=== PATIENT | male | born 1955 | race Caucasian/White ===

== ENCOUNTER 2025-03-19 09:25 | Emergency (ER) | payer OTHER, SELFPAY ==
[2025-03-19 09:29] VITALS: BP 105/55
[2025-03-19 09:41] VITALS: BMI 37.3
--- NOTE | 2025-03-19 09:53 | ED.GENMED ---
History of Present Illness
General
Chief Complaint: Nose Bleed
Source: patient
Time Seen by Provider: 03/19/25 09:45
History of Present Illness
History of Present Illness:
70-year-old male with past medical history of COPD, atrial fibrillation, hypertension, chronic epistaxis presenting to the ER from right nare epistaxis that began around 6:30 AM this morning. Patient was scheduled to undergo a CT scan as part of
his outpatient workup prior to getting a Watchman procedure completed and due to the bleeding came to the ER instead. He does note that the bleeding has subsided a little bit. He notes that this is a chronic condition for him and has needed
cauterization done by ENT, sees Dr. Chaves from [facility] normally. Patient is on Xarelto, did not take his usual dose this morning. He has no other symptoms presently.
Past History
Past History
ED Past Medical History: Arrthythmia, COPD, HTN and Other (Chronic Epistaxis)
ED Past Surgical History: None
Social History
Tobacco: Former smoker
Alcohol: None
Drug: None
Personal:
Living: with family
Review of Systems
Review of Systems
All Other Systems: ROS reviewed and negative except as documented in HPI and ROS
Phy Exam
Physical Exam
Physical Exam:
GENERAL: Alert , in no apparent distress
EYE: conjunctiva clear
Head: Normocephalic atraumatic
NECK: Supple
ENT: mmm. fresh blood anterior right nare but without active bleeding, no septal hematoma
LUNGS: no acute respiratory distress
NEUROLOGICAL: Alert and oriented
SKIN: Warm and dry, skin intact.
MUSCULOSKELETAL: well perfused.
PSYCH: Normal and appropriate interaction.
Scores
Heart Failure Risk
Heart Failure Risk Score: Not Applicable
Heart Score for Chest Pain Patients
STEMI patient?: Not applicable
Withdrawal Assessment of Alcohol
Withdrawal Assessment Completed?: Not applicable
Course
Vital Signs
Initial and Last Documented VS:
Initial Vital Signs
Temp Pulse Resp BP Pulse Ox
97.9 F 54 16 105/55 98
03/19/25 09:29 03/19/25 09:29 03/19/25 09:29 03/19/25 09:29 03/19/25 09:29
Last Documented Vital Signs
Temp Pulse Resp BP Pulse Ox
97.9 F 61 15 147/90 98
03/19/25 09:29 03/19/25 11:04 03/19/25 11:04 03/19/25 11:04 03/19/25 09:57
MDM/Problems Addressed
Differential Diagnosis Includes:
Chronic epistaxis
Infectious
Sinusitis
Anemia
MDM/Problems Addressed:
70-year-old male presenting to the ER for evaluation of epistaxis that has been constant since 6:30 AM. No fevers or infectious symptoms. Hemodynamically stable and in no acute distress. Given bleeding has since subsided a little bit we will
continue to observe patient with nasal clamp. He did already use Afrin at home so we will avoid giving a second dose of this for the time being. Will consider silver nitrate given the small area of bleeding noted in the anterior right nare. Low
threshold to pack given patient is anticoagulated.
*Pulse Oximetry
SaO2: 98
Oxygen Mode of Delivery: Room air
Patient hypoxic: no
*Critical Care Note
Total Time (30-74mins, 75-104mins- exclusive of procedures): Not Applicable
Patient Management
Escalation/DeEscalation of care consider admission/obs:
Patient's epistaxis remains resolved without any further direct pressure. While in the ER I had the patient contact his ENT provider and they were able to see him today for an appointment at 1230. Will discharge the patient for him to go directly
to the ENT office. He has a nasal clamp to bring with him just in case his nosebleed starts again.
ED Attending Note
-
Portions of this chart may have been created with voice recognition software.� Occasional wrong word or��sound alike� substitutions may have occurred due to the inherent limitations of voice recognition software.
Discharge Plan
Departure
Patient Disposition: Home (Routine Discharge)
Date of Disposition: 03/19/25
Time of Disposition: 11:15
Patient with high blood pressure during this ER visit?: Yes
Discharge Problem:
Epistaxis
Instructions: Nosebleeds (DC)
Prescriptions:
No Action
diltiazem HCl 240 MG capsule,extended release 24hr
240 mg PO DAILY
furosemide [Lasix] 40 MG tablet
40 mg PO DAILY
fluconazole 100 MG tablet
100 mg PO DAILY
dofetilide [Tikosyn] 250 MCG capsule
250 mcg PO BID
budesonide-formoterol [Symbicort] 1 PUFF HFA aerosol inhaler
1 puff inhalation BID
rivaroxaban [Xarelto] 20 MG tablet
20 mg PO DAILY
Referrals:
Bharti Loredo DO [Family Provider]
Interventions
Interventions:
*Risk Screen - Suicide Last Done: 03/19/25 09:29
*General Assessment Last Done: 03/19/25 09:29
*Neglect/Abuse Screening Last Done: 03/19/25 09:29
*ED- Fall Risk Assessment Last Done: 03/19/25 09:42
*ED COVID-19 Vaccine History Last Done: 03/19/25 09:42
*ED Influenza Vaccine History Last Done: 03/19/25 09:42
*Nursing Disposition Last Done: 03/19/25 11:20
ED-EENT Assessment Last Done: 03/19/25 09:48
Discharge Date and Time
Discharge Date/Time: 03/19/25 11:20
Print Language: CAMBODIAN
[2025-03-19 10:08] VITALS: BP 125/60
[2025-03-19 10:10] VITALS: BP 125/60
[2025-03-19 11:04] VITALS: BP 147/90
== END 2025-03-19 11:20 | disposition home or self-care (01) ==
LOC: EMR 09:25
PROVIDERS: EMERGENCY PHYSICIAN Emergency Medicine; FAMILY PHYSICIAN Family Medicine
DX: R04.0 Epistaxis (principal); I48.91 Unspecified atrial fibrillation; I10 Essential (primary) hypertension; J44.9 Chronic obstructive pulmonary disease, unspecified; Z79.01 Long term (current) use of anticoagulants; Z87.891 Personal history of nicotine dependence
CPT/HCPCS: 99282

== ENCOUNTER → 2025-04-01 09:02 | Outpatient (REF) | payer OTHER, SELFPAY | LOC: RAD 09:02 | PROVIDERS: ATTENDING PHYSICIAN Internal Medicine Cardiovascular Disease; FAMILY PHYSICIAN Family Medicine | DX: I48.0 Paroxysmal atrial fibrillation (principal) | CPT/HCPCS: 75572; Q9967 ==

== ENCOUNTER 2025-05-01 07:21 | Day surgery (SDC) | payer OTHER, SELFPAY ==
--- NOTE | 2025-04-28 14:53 | HPS.HSE ---
Family Physician
-
Family Physician: NO INTERVIEW UNKNOWN
Chief Complaint
-
Paroxysmal atrial fibrillation. Recurrent epistaxis.
History of Present Illness
The patient is a 70-year-old male presenting today for paroxysmal atrial fibrillation. The patient reports a history of infrequent palpitations, fatigue, lightheadedness, dizziness, and mild shortness of breath secondary to this diagnosis.
He previously underwent two cardioversions for his arrhythmia, with the last occurring approximately seven years ago. He is on current pharmacological therapy with Diltiazem, Dofetilide, and Metoprolol Succinate. He has been compliant with Xarelto
for oral anticoagulation. Unfortunately, he describes a long history of frequent epistaxis. He has required several emergency room visits for his epistaxis. He reports that his epistaxis can be very severe and his fear and concern for recurrent
epistaxis has significantly affected his lifestyle. He is always concerned that a simple sneeze or cough will cause his epistaxis to reoccur. Additionally, he has developed a worsening gait and now walks with a cane. He also has multifactorial
anemia. For these reasons, it is recommended he proceed with pulmonary vein isolation and Watchman implantation at this time. Prior to these procedures, he will undergo a transesophageal echocardiogram to definitively rule out a left atrial
appendage thrombus. He denies any current complaints today such as chest pain, shortness of breath at rest, nausea, vomiting, diarrhea, cough, sore throat, or fever.
Medical History
Past Medical History
Past Medical History: Reports Other
Additional Past Medical History:
1. Paroxysmal atrial fibrillation, status post cardioversion x2; pharmacological therapy with Dofetilide, Diltiazem, and Metoprolol Succinate, oral anticoagulation with Xarelto
2. Recurrent epistaxis.
3. Hypertension.
4. Chronic diastolic heart failure, preserved ejection fraction.
5. Sinus bradycardia.
6. Chronic venous insufficiency with varicosities.
7. Bilateral lower extremity edema.
8. Pulmonary hypertension.
9. Moderate to severe aortic stenosis.
10. COPD.
11. Pulmonary nodules.
12. Obstructive sleep apnea, recent noncompliance with CPAP due to recurrent epistaxis.
13. Chronic kidney disease stage 3.
14. Colon polyps.
15. Cholelithiasis, asymptomatic.
16. Ambulatory dysfunction with balance difficulties.
17. Osteoarthritis, status post bilateral total knee arthroplasty, 2008, and right total hip arthroplasty 2020.
18. Glaucoma per records.
19. Multifactorial anemia requiring blood transfusion 04/15/2025.
20. Gout.
21. Mild hyponatremia.
22. Mild hypocalcemia.
23. Morbid obesity, BMI 40.1.
24. History of tobacco abuse.
Past Surgical History: Reports Other
Additional Past Surgical History:
1. Cardioversion x2.
2. Bilateral total knee arthroplasty.
3. Right total hip arthroplasty.
4. Right adrenalectomy.
5. Bilateral cataract extraction.
6. Colonoscopy x2.
7. Endoscopy.
Social History
Tobacco: Former Smoker (He is a former one pack per day cigarette smoker who quit tobacco products altogether approximately four years ago. )
Alcohol: Occasional
Personal:
Living: Other (The patient lives in a one-story home with his . )
Family History
Family History: Not pertinent
Allergies / Home Medications
Allergy/Medication List:
HOME MEDICATIONS:
1. Cyanocobalamin 1000 mcg p.o. daily.
2. Diltiazem HCL 240 mg p.o. daily.
3. Dofetilide 250 mcg p.o. twice a day.
4. Furosemide 40 mg p.o. daily.
5. Losartan 25 mg p.o. daily.
6. Metoprolol Succinate 12.5 mg p.o. at bedtime.
7. Stiolto Respimat two puffs inhaled daily.
8. Xarelto 20 mg p.o. daily.
ALLERGIES: No known allergies.
Review of Systems
-
A 12 point ROS was completed and negative except as noted: Yes
Physical Exam
Vital Signs
Blood pressure 117/62, heart rate 46, respirations 18, pulse ox 99%.
Height 5 feet 5 inches, weight 109.2 kg, BMI 40.1.
Physical Exam
General: Well Developed, Well Nourished and No Apparent Distress
HEENT: NormoCephalic, Moist mucous membranes, Atraumatic and PERRLA
Respiratory: Clear
Cardiac: Bradycardia and Murmur (I/ apical hollow systolic murmur. )
GI: Soft, Non Tender, Non Distended and Other (Morbidly obese. )
Musculoskeletal: Other (+ 1 bilateral lower extremity edema with chronic venous stasis changes. No calf tenderness.)
Skin: Warm and Dry
Neuro: AO x 3 and Nonfocal/grossly intact
Laboratory Results
-
DIAGNOSTIC STUDIES as of 04/22/2025: White blood cell count 4.3, hemoglobin 9.8, platelet count 152,000. PT 34.1, INR 3.44. Sodium 131. Potassium 4.6. BUN 38. Creatinine 1.5. Glucose 88. Calcium 8.1. Magnesium 2.3. AST 18. ALT 12. Albumin 3.9. MRSA
screen negative.
EKG 04/22/2025: Baseline artifact which adversely affects interpretation. Junctional rhythm.
Echocardiogram 01/19/2025: Moderate to moderately severe left atrial and mild to moderate right atrial enlargement with borderline right ventricle enlargement. All other chamber sizes normal. Normal left and low normal right ventricular systolic
function. Grade 3 diastolic dysfunction. Moderate to severe aortic stenosis. Trace to mild tricuspid regurgitation with evidence of severe pulmonary hypertension.
Cardiac catheterization 12/03/2020: Moderate aortic stenosis with mean gradient of 27 mmHg. Normal left ventricular function with ejection fraction 64%. Normal coronary arteries.
Impression/Plan
-
IMPRESSION/PLAN:
1. Paroxysmal atrial fibrillation and recurrent epistaxis: The patient is in need of pulmonary vein isolation and a Watchman implant; however, prior to these procedures, he will undergo a transesophageal echocardiogram to officially rule out a left
atrial appendage thrombus. This has been scheduled for 05/01/[address] Tenzin Fishman. The benefits and risks of the procedure have been explained to the patient. The patient understands these risks and wishes to proceed.
[2025-05-01 08:14] VITALS: BMI 41.7
== END 2025-05-01 09:45 | disposition home or self-care (01) ==
LOC: CATH 07:21
PROVIDERS: ATTENDING PHYSICIAN Internal Medicine; FAMILY PHYSICIAN Family Medicine; OTHER PHYSICIAN Physician Assistant
DX: I48.0 Paroxysmal atrial fibrillation (principal); Z79.899 Other long term (current) drug therapy; Z79.01 Long term (current) use of anticoagulants; R04.0 Epistaxis; D64.9 Anemia, unspecified; E66.01 Morbid (severe) obesity due to excess calories; G47.33 Obstructive sleep apnea (adult) (pediatric); H40.9 Unspecified glaucoma; I08.1 Rheumatic disorders of both mitral and tricuspid valves; I13.0 Hypertensive heart and chronic kidney disease with heart failure and stage 1 through stage 4 chronic kidney disease, or unspecified chronic kidney disease; I27.20 Pulmonary hypertension, unspecified; I35.0 Nonrheumatic aortic (valve) stenosis; I50.32 Chronic diastolic (congestive) heart failure; I87.2 Venous insufficiency (chronic) (peripheral); J44.9 Chronic obstructive pulmonary disease, unspecified; M10.9 Gout, unspecified; M19.90 Unspecified osteoarthritis, unspecified site; N18.30 Chronic kidney disease, stage 3 unspecified; Z68.41 Body mass index [BMI] 40.0-44.9, adult; Z87.891 Personal history of nicotine dependence; Z86.0100 Personal history of colon polyps, unspecified; Z96.643 Presence of artificial hip joint, bilateral; Z96.653 Presence of artificial knee joint, bilateral; Z98.41 Cataract extraction status, right eye; Z98.42 Cataract extraction status, left eye; E83.51 Hypocalcemia; E87.1 Hypo-osmolality and hyponatremia
CPT/HCPCS: 93312; 93320; 93325

== ENCOUNTER 2025-05-04 05:57 | Inpatient (IN) | payer OTHER, SELFPAY ==
[2025-04-22 11:01] VITALS: BMI 40.1
[2025-04-22 11:37] LABS: INR 3.44; PT 34.1 Sec (11.4-14.6)
[2025-04-22 11:44] LABS: Hematocrit 30.2 % (39.0-52.0); Hemoglobin 9.8 g/dL (13.0-18.0); Mean Corp Hgb Conc. 32.5 g/dL (33.0-37.0); Mean Corpuscular Volume 93.5 fL (80.0-94.0); Nucleated Red Blood Cells % 0 % (-); Platelet Count 152 10^3/uL (130-400); Red Cell Dist. Width 15.2 % (11.5-14.5)
[2025-04-22 13:31] LABS: ALT (SGPT) 12 U/L (0-50); AST (SGOT) 18 U/L (17-59); Albumin 3.9 g/dl (3.5-5.0); Alkaline Phosphatase 124 U/L (38-126); Blood Urea Nitrogen 38 mg/dl (9-20); Calcium 8.1 mg/dl (8.4-10.2); Carbon Dioxide 24 mmol/L (22-30); Chloride 102 mmol/L (98-107); Estimated Creatinine Clearance 52 ml/min; Glucose 88 mg/dl (70-99); Magnesium 2.3 mg/dl (1.6-2.3); Potassium 4.6 mmol/L (3.5-5.1); Sodium 131 mmol/L (135-145); Total Protein 8.0 g/dl (6.3-8.2); eGFR 49.77
--- NOTE | 2025-05-01 13:09 | W.SUR.PREOP ---
Pre-Operative Surgical Note
-
Attempted a repeat BMP for this patient on , 04/30.
Unfortunately his specimen had hemolyzed.
Spoke to Dr. Holbrook re: this and the patient's recent mild, asymptomatic hyponatremia.
The patient may still proceed as planned on 05/04.
Spoke to patient directly over the phone about this today.
[2025-05-04] VITALS (35 sets, daily range): BP systolic 74–129; BP diastolic 47–74; BMI 39.9
--- NOTE | 2025-05-04 07:46 | ITS.CL.ABL ---
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
Ablation
Procedure Report:
ELECTROPHYSIOLOGIC STUDY AND POSSIBLE ABLATION
DATE: May 04, 2025
Primary Care Provider: Bharti Loredo MD
Primary Abalone Fisherman: Houston Quinones MD
INDICATION:
Symptomatic Atrial Fibrillation.
Paroxysmal
HISTORY: See H and P.
Symptomatic AF, poorly controlled with attempted medical therapy.
Symptomatic paroxysmal atrial fibrillation. Symptoms occur at least once a week and can last anywhere from 15 minutes to several hours, this despite ongoing treatment with dofetilide.
He has a long history of frequent epistaxis.� He has required several emergency room visits for recurrent epistaxis.� He tells me epistaxis can be very severe and his fear and concern of recurrent epistaxis has significantly affected his lifestyle
as he is always concerned that with a simple sneeze or cough epistaxis can recur.
Additionally he has developed worsening gait disturbance, now walks with a cane. He tells me he feels off balance at times. He is yet to have a severe fall but he is worried about his risk of severe falls.
He has history of COPD, SPIKE, diastolic heart failure, hypertension, gout, osteoarthritis, glaucoma, venous insufficiency, aortic stenosis.
Echocardiogram from January 05, 2025:� �Normal left ventricular size and function, �Borderline right ventricular enlargement, �Moderate to moderately severe left atrial, mild to moderate right atrial enlargement, moderate to aortic stenosis with
peak and mean gradients of 43 and 23 mmHg respectively
HAS-BLED: 3
Age
Abnormal Renal Function
H/O Bleeding
CHADSVASc: 3
HFpEF
HTN
Age
PRESENTING RHYTHM: SR
HISTORY: See H and P.
Symptomatic AF, poorly controlled with attempted medical therapy.
ANTICOAGULATION: Rivaroxaban 20 mg daily
'TIME-OUT': called and confirmed.
SEDATION/ANESTHESIA: provided via the anesthesia department using general anesthesia.
PROCEDURE:
Ultrasound Guidance with real-time visualization of needle insertion and vessel patency performed by me for femoral venous Vascular Access.
Under real-time US guidance, the needle was advanced with negative pressure into the vein. The needle was seen entering the vessel lumen with a good return of dark red flow, the syringe was removed, non-pulsatile, dark red blood low was noted and
the wire was passed without difficulty, then the needle was removed. US confirmed the wire was in the vein, not going into an artery,
Images were taken and saved for the patient's permanent record. Imaging findings typical femoral venous anatomy. Direct visualization of needle puncture into the femoral vein was observed and recorded.
3 sheaths were inserted into the right femoral vein.
A decapolar CS catheter was positioned within the CS for mapping and pacing.
The intracardiac ultrasound catheter was positioned in the RA for continuous intracardiac ultrasound imaging.
Heparin bolus and infusion to target ACT at 300 -350 seconds was administered. Transseptal puncture was performed. This entailed advancing a sheath with dilator into the superior vena cava and withdrawing both (monitoring intracardiac ultrasound,
fluoroscopy and tip pressure) with the tip oriented toward the atrial septum. The fossa ovalis was engaged (indicated by sudden displacement of the sheath tip as well as tenting of the fossa seen on intracardiac ultrasound).
The [employer] transseptal system utilizing VersaCross RF was used. Left atrial catheter position was confirmed by echocardiographic imaging and fluoroscopy followed by RF delivery using the Medlio system resulting in successful LA access with
pressure monitoring demonstrating LA pressure waveforms (LA mean pressure 12 mm Hg). The Faradrive sheath was advanced over the dilator and positioned in the left atrium.
[place] was used for 3-D anatomic rendering and electroanatomical mapping.
The Farapulse PFA catheter and system was used for cardiac ablation. Catheter positioning was guided and confirmed using both I.C.E. and fluoroscopy.
Ablation strategy included PVI as well as mapping for extra PV contributors to atrial fibrillation which would also be targeted if present.
High density electroanatomical three-dimensional mapping demonstrated 5 PVs: LSPV, LIPV, RSPV, RMPV, RIPV.
After accomplishing pulmonary venous isolation, mapping identified additional areas likely to be extra PV contributors to atrial fibrillation. These areas demonstrated patchy low voltage as well as complex fractionated electrograms. These areas can
be sites for the formation of rotors which can drive and maintain atrial fibrillation. These areas are known to be significant contributors to initiation and perpetuation of atrial fibrillation.
Additional energy applications/additional ablation sets targeted extra PV contributors to atrial fibrillation.
Targets for additional PFA ablation included:
LA posterior wall targeted with pulsed electric field energy isolating the posterior wall of the left atrium
After ablation of the posterior wall, additional targets were addressed:
LA inferior floor
These areas were ablated using pulsed electric field energy eliminating the extra PV contributors to atrial fibrillation.
Post ablation mapping finds entrance and exit block at each of the pulmonary veins, the LA posterior wall and at the additional line at the inferior/floor of the LA rendering the sites no longer able to contribute to atrial fibrillation.
Programmed electrostimulation including burst atrial pacing as well the delivery of decremental extrastimuli could induce an irregular atrial tachycardia which was sustained and self terminating on 2 occasions and on 1 occasion degenerated to atrial
fibrillation. Cardioversion restored sinus rhythm
I.C.E. :
Pre-Ablation Post-Ablation
LVEF: 55 % 55 %
WMA: none none
Pericardial effusion: Trace anterior trace anterior
LA Pressure (mmHg) 12 15
COMPLICATIONS:
None
SUMMARY:
- Mapping and ablation to isolate the PVs resulting in electrical isolation of the pulmonary veins
- Additional AF ablation sets X 2 after PVI (LA posterior wall, Inf/floor of the LA posterior wall) resulting in elimination of the targeted extra PV contributors to atrial fibrillation.
- 3-D Electroanatomical Mapping
- Intracardiac Ultrasound
- Ultrasound guidance for vascular access
Post ablation, I discussed today's findings and results with the patient's , Lili].
RECOMMENDATIONS:
- Observe in monitored bed.
- Maintain oral anticoagulation.
- Continue dofetilide 250 mcg p.o. twice daily
- Office visit with Destiny Aden is planned for 08/04/2025
- Continue cardiovascular care with Houston Quinones MD
Copy to:
Primary Care Provider: Bharti Loredo MD
Primary Abalone Fisherman: Houston Quinones MD
--- NOTE | 2025-05-04 07:55 | WATCHMAN.MD ---
Watchman Implant
-
WATCHMAN LEFT ATRIAL APPENDAGE CLOSURE DEVICE REPORT
Date: May 04, 2023
Primary Care Provider: Bharti Loredo MD
Primary Chemical Laboratory Tester: Houston Quinones MD
History:
Symptomatic AF, poorly controlled with attempted medical therapy.
Symptomatic paroxysmal atrial fibrillation. Symptoms occur at least once a week and can last anywhere from 15 minutes to several hours, this despite ongoing treatment with dofetilide.
He has a long history of frequent epistaxis.� He has required several emergency room visits for recurrent epistaxis.� He tells me epistaxis can be very severe and his fear and concern of recurrent epistaxis has significantly affected his lifestyle
as he is always concerned that with a simple sneeze or cough epistaxis can recur.
Additionally he has developed worsening gait disturbance, now walks with a cane. He tells me he feels off balance at times. He is yet to have a severe fall but he is worried about his risk of severe falls.
He has history of COPD, SPIKE, diastolic heart failure, hypertension, gout, osteoarthritis, glaucoma, venous insufficiency, aortic stenosis.
Echocardiogram from January 05, 2025:� �Normal left ventricular size and function, �Borderline right ventricular enlargement, �Moderate to moderately severe left atrial, mild to moderate right atrial enlargement, moderate to aortic stenosis with
peak and mean gradients of 43 and 23 mmHg respectively
HAS-BLED: 3
Age
Abnormal Renal Function
H/O Bleeding
CHADSVASc: 3
HFpEF
HTN
Age
Watchman Team:
UMESH: Dr Richard Perry M.D.
Transseptal flooring machine operator: Dr Asif Holbrook M.D.
Implanter: Dr Beverly M.D.
Procedure: Watchman left atrial appendage closure.
The patient was placed under general anesthesia by anesthesia.
A UMESH probe was placed.
Heparin was administered to goal ACT 350-400 seconds. Fluid bolus was given.
Intracardiac ultrasound catheter was positioned in the right atrium and provided real-time echocardiographic imaging of the left atrium and left atrial appendage.
Transesophageal echocardiogram provided additional imaging.
Dr Paul positioned and deployed the Watchman device.
A 5 Georgian curved pigtail was then substituted for the guidewire through the watchman sheath to the ostium of the left atrial appendage. The 5 Georgian pigtail was advanced into the left atrial appendage and angiography was performed. This allowed
additional measurements assessing left atrial appendage ostium size and RACHEL morphology.
The pigtail catheter was removed from the access sheath. A 35 mm Watchman device was flushed and then placed into the watchman access sheath and advanced through the sheath. The Watchman was clamped into the sheath. The device was deployed into
the left atrial appendage.
The PASS criteria were met. The stability tug test was performed and passed. Angiography and transesophageal echocardiogram revealed no leaks nor jets. The position was confirmed on angiography and transesophageal echo and there were no
significant shoulders. Compression ranges from 20 % to 25 %.
After meeting the PASS release criteria the device was released into the left atrial appendage.
The watchman access sheath was then removed through the transseptal into the IVC. A figure 8 suture closure was performed at the site of the femoral venous puncture and the sheath as it was removed.
Impression:
- Transseptal puncture by Dr Rob holbrook.
- Successful Deployment 35 mm WATCHMAN left atrial appendage closure device by Dr Paul.
Recommended anticoagulation strategy for this specific patient is:
Maintain Xarelto 20 mg daily and assess Watchman device at 3-month post procedure transesophageal echocardiogram.
At post procedure UMESH leaks > 5mm are significant and require chronic full anticoagulation or consideration for leak closure.
Khadra-device leaks between 3 and 5 mm may also carry an increased risk. These patients will need individualized risk assessment and discussion with Watchman team.
Leaks < 3 mm are generally considered non-significant.
With leak of any size suggestion is to check UMESH 12 mo out from implant.
While the overall risk of device related infection for Watchman device is very low, we recommend SBE prophylaxis with amoxicillin for the first 6 months after device implantation until the device is more completely endothelialized. After the first
6 months, the risk of infection associated with a device is further reduced and routine antibiotic prophylaxis is not mandatory but can be decided on an individual case basis.
Office visit scheduled with Destiny Aden August 04, 2025 and UMESH will follow this office visit
Continue cardiovascular care with Dr. Houston Quinones MD
cc:
Primary Care Provider: Bharti Loredo MD
Primary Chemical Laboratory Tester: Houston Quinones MD
[2025-05-04 09:26] LABS: ACT-LR - POC 392 Seconds (116-155)
[2025-05-04 09:43] LABS: ACT-LR - POC 368 Seconds (116-155)
[2025-05-04 10:02] LABS: ACT-LR - POC 368 Seconds (116-155)
--- NOTE | 2025-05-04 10:12 | WATCHMAN.MD ---
Watchman Implant
-
ELECTROPHYSIOLOGY/INTERVENTIONAL PROCEDURE REPORT
Date of Procedure: May 04, 2025
Assisting Physician: Asif Holbrook
PROCEDURES:
1. Left atrial appendage occlusion device using 31 mm WATCHMAN FLX device
2. Intracardiac echocardiography
3. Ultrasound-guided right common femoral venous access
INDICATION: High [id number] warranting usp full anticoagulation but inability to do this given his bleeding risk/bleeding complication.
ACCESS: Right common femoral vein, 16Fr sheath and 9Fr. sheaths, under US guidance using micropunture kit.
Ultrasound was utilized for vascular access. The right femoral vein was visualized under ultrasound, and the vessels was patent. An image was stored permanently in the patient's medical record. Under direct ultrasound guidance, an 8 Cuban
sheaths was inserted into the right common femoral vein, using a micropuncture kit through a modified Seldinger technique.
HEMODYNAMICS : (mmHg)
LA Pressure: 21
PROCEDURE REPORT:
After informed consent and patient safety 'Timeout' the patient was intubated and sedated by the anesthesiology service. Under ultrasound guidance, the right femoral vein was accessed by Dr. Holbrook twice for transseptal puncture and
intracardiac ultrasound, respectively. With initial completion of A-fib ablation. Once the ablation was completed, we proceeded with implantation of left atrial appendage closure device.. Concomitant transesophageal echocardiogram was performed by
Dr. Richard Perry
Baseline intracardiac ultrasound demonstrated no pericardial effusion and baseline UMESH images revealed a trace pericardial effusion.
Over the [place] Versac[employer] pigtail 0.035 wire, which was parked in the body of left atrial appendage, the watchman access double curve sheath was advanced over this into the left atrium. A 5 Cuban pigtail catheter was placed into the left atrial
appendage and an appendage gram was performed using intravenous contrast dye demonstrating an anatomy that was suitable likely for a 31 mm WATCHMAN FLX device.
After appropriately prepping the device, Dr. Lynne Paul successfully deployed a 31 mm WATCHMAN FLX device. Device showed excellent positioning with no leaks post device deployment. 19 to 23 % compression was noted in the device after deployment. A
'tug-test' was performed demonstrating stability of the device. Given PASS criteria were met, the device was then released successfully by Dr. Paul.
Post procedure, UMESH imaging demonstrated no new or worse pericardial effusion. Sheaths and catheters were removed from the left atrium and heparin was reversed using protamine. Catheters removed from the femoral veins with [id number] suture
applied. The patient tolerated the procedure well.
Closure Device: Figure of 8 suture
CONCLUSIONS
1. Successful deployment of 31 mm WATCHMAN FLX device under UMESH and ICE guidance.
RECOMMENDATIONS
1. Plan for resumption of anticoagulation for the next 3 months.
2. 3-month UMESH post procedure to assess stability of device and rule out any miguel ángel-device leaks. If no issues noted on the 3-month UMESH post watchman placement such as a greater than 5 mm leak, plan would be to stop anticoagulation at that point and
continue daily baby aspirin lifelong.
3. Figure of 8 suture removal prior to discharge.
Lynne Paul MD, [facility], [facility]
[2025-05-04 11:21] LABS: ACT-LR - POC > 397 Seconds (116-155)
--- NOTE | 2025-05-04 11:34 | PTCARENOTE ---
approx 1048 pts bp low at 84/54. pt without symptoms, aa and oriented x3. dr berrios out to see pt . states pt usually runs low and is ok . and to put him in a little reverse trendellenberg if he goes lower .
--- NOTE | 2025-05-04 12:11 | PTCARENOTE ---
Received pt from recovery area. AOx3, no complaints of pain or discomfort. Pt educated on restrictions and expected OOB time. Right groin dressing CDI. at bedside. SR on tele monitor. Call adams within reach.
--- NOTE | 2025-05-04 14:59 | CM ---
Reviewed chart. Met with Mr. Gonzalez to review discharge plans. He states prior to admission he resides with his spouse in a one story home without any steps to enter. He states prior to admission he was independent with adls and uses a single
point cane to ambulate. He states he has a single point cane at home. He staets he has a prescription plan and uses [facility]. Medical work-up in progress. The discharge plan is to return home with his spouse when medically
stable. .
[2025-05-04] MEDS: XARELTO 20 MG PO (18:22)
[2025-05-04] MEDS: TIKOSYN 250 MCG PO (18:22)
[2025-05-04] MEDS: NSS 250 IV (18:30)
--- NOTE | 2025-05-04 19:20 | PTCARENOTE ---
BP low 88/50 manually, Dr Paul made aware. Received orders for 250cc bolus. Report given to nightshift RN.
--- NOTE | 2025-05-04 20:54 | PTCARENOTE ---
Notified Dr. Paul pt.s BP 87/53 (ranging 80's-90's) post IVF bolus. Pt. is asymptomatic, states his normal range is 90's-low 100's. Instructed to monitor for now. Right groin site dressing intact with no new oozing (small amount present from
previous shift, no change); no hematoma. Doppler pedals positive. NSR on the monitor. Pt. currently watching TV in bed.
--- NOTE | 2025-05-04 21:37 | PTCARENOTE ---
Notified Dr. Paul pt.s BP 87/53 (SBP ranging 80's-90's) post IVF bolus. Pt. is asymptomatic, states his normal SBP range is 90's-low 100's. Instructed to monitor for now. Right groin site dressing intact with no new oozing (small amount present
from previous shift, no change); no hematoma. Doppler pedals positive. NSR on the monitor. Pt. currently watching TV in bed.
[2025-05-05] VITALS (9 sets, daily range): BP systolic 84–111; BP diastolic 52–87
[2025-05-05] MEDS: MAALOX 30 ML PO (02:33)
[2025-05-05 03:48] LABS: Blood Urea Nitrogen 40 mg/dl (9-20); Calcium 7.7 mg/dl (8.4-10.2); Carbon Dioxide 23 mmol/L (22-30); Chloride 103 mmol/L (98-107); Estimated Creatinine Clearance 52 ml/min; Glucose 110 mg/dl (70-99); Magnesium 2.0 mg/dl (1.6-2.3); Potassium 4.8 mmol/L (3.5-5.1); Sodium 131 mmol/L (135-145); eGFR 49.77
[2025-05-05 04:14] LABS: Hematocrit 23.5 % (39.0-52.0); Hemoglobin 7.7 g/dL (13.0-18.0); Mean Corp Hgb Conc. 32.8 g/dL (33.0-37.0); Mean Corpuscular Volume 92.9 fL (80.0-94.0); Platelet Count 108 10^3/uL (130-400); Red Cell Dist. Width 14.9 % (11.5-14.5)
--- NOTE | 2025-05-05 04:30 | PTCARENOTE ---
H&H of 7.7/23.[address] Paul. SBP remained stable overnight (80's-90's), old right groin site dressing with old drainage changed, no new oozing or hematoma assessed. No new orders at this time.
--- NOTE | 2025-05-05 07:53 | W.PN.CARDCBS ---
Addendum entered and electronically signed by Asif Holbrook MD 05/05/25 13:27:
Patient seen, interviewed and examined by me.
Well-appearing, no acute distress
Neck no JVD
Regular rate and rhythm with normal S1 and S2, no S3 no S4. There is a grade 1/6 apical holosystolic murmur and no rubs. PMI is normally placed.
Lungs are clear to auscultation bilaterally without wheezes rales or rhonchi.
Abdomen soft nontender nondistended with normoactive bowel sounds
Right groin soft, no hematoma no bruits.
Extremities show trace pretibial edema bilaterally no clubbing or cyanosis.
Neurologic exam is grossly nonfocal.
He remains in sinus rhythm after his ablation May 04, 2025.
He is also status post implantation of Watchman device for left atrial appendage exclusion on May 04, 2025.
His blood pressure has been a bit soft but now improved. Stable. He has been up and ambulating without any dizziness.
His hemoglobin is down approximately 2 g. He is known to be anemic and is planned for iron infusion next week. Repeat hemoglobin stable at 7.7. No evidence of bleeding at the groin.
I also checked echocardiogram and there is trivial pericardial effusion unchanged from yesterday. Normal left ventricular size and function as well as normal right ventricular size and function.
Overall he is stable for discharge to home today.
I reviewed discharge instructions with him including no heavy lifting exercising or yard work for the next 5 days.
He has been scheduled for a follow-up office visit followed by transesophageal echo which will be approximately 3 to 4 months from today.
All of his questions answered.
Original Note:
Today's Communication / Plan
-
Repeat CBC
followup echo for possible pericardial effusion
hold losartan, furosemide
Impression / Plan
-
PCP: Bharti Loredo MD
CDY: Houston Quinones MD
70 y/o, recurrent symptomatic AFib, poorly controlled with medical therapy. [id number]=0, maintained on Xarelto, dofetilide. Also with history of multifactorial anemia and recurrent epistaxis, with visits to ER and has had transfusions in the
past. Epistaxis can occur with a simple sneeze or cough. He also has developed worsining gait disturbance, off balance, and uses a cane for ambulation. No falls as of yet. HAS-BLED=4.
Now s/p PFA with watchman device implant.
Today, hgb down to 7.7 (was 9.8 prior to procedure) and BP has been soft 80-90s overnight (MAP 60-70s). Will hold AM losartan, furosemide and repeat CBC, with followup echo to eval for effusion. Groin site is stable.
IMPRESSION:
Symptomatic PAF
Multifactorial anemia w/prior transfusions
Recurrent epistaxis
Ambulatory dysfunction/gait disturbance
S/P PFA + Watchman device implant, 05/04/25
CKD3a
Chronic diastolic HFpEF, 55-60%
HTN
Pulm HTN
Mod-sev
COPD/Pulm nodules
SPIKE/Non compliant with CPAP
Morbid obesity
PLAN:
Tele- SB/SR 50-60s
Groin site- soft, non tender
Resumed xarelto, dofetilide last evening
Anemia noted with >2gm drop post procedure- repeat CBC now
Check followup echo this morning for possibility of pericardial effusion
Soft BP with MAP >60- hold furosemide and losartan this morning
continue low dose metoprolol
post watchman UMESH 08/10/25
Followup at [facility] as scheduled and with Dr. Quinones thereafter
Await repeat CBC and echo results
Anticipate d/c later today if stable
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
Subjective
Date of Service: May 05, 2025
Denies cp/palps/dyspnea
oob ambulating
groin site without pain
Objective
Labs:
05/05/25 02:56
Labs
Hgb 7.7 g/dL (13.0-18.0) L 05/05/25 02:56
Hct 23.5 % (39.0-52.0) L 05/05/25 02:56
Plt Count 108 10^3/uL (130-400) L 05/05/25 02:56
PT 34.1 Sec (11.4-14.6) H 04/22/25 11:09
INR 3.44 04/22/25 11:09
Sodium 131 mmol/L (135-145) L 05/05/25 02:56
Potassium 4.8 mmol/L (3.5-5.1) 05/05/25 02:56
BUN 40 mg/dl (9-20) H 05/05/25 02:56
Creatinine 1.5 mg/dL (0.7-1.3) H 05/05/25 02:56
Glucose 110 mg/dl (70-99) H 05/05/25 02:56
Vital Signs and I&O:
Vital Signs
Temp Pulse Resp BP Pulse Ox
98.4 F 57 16 84/53 96
05/05/25 06:59 05/05/25 07:30 05/05/25 06:59 05/05/25 06:57 05/05/25 06:59
Vital Signs
Temp Pulse Resp BP Pulse Ox
98.4 F 57 16 8453 96
05/05/25 06:59 05/05/25 07:30 05/05/25 06:59 05/05/25 06:57 05/05/25 06:59
Intake & Output
05/03/25 05/04/25 05/05/25 05/06/25
06:59 06:59 06:59 06:59
Intake Total 1310 / 1310
Output Total 725 / 725
Balance 585 / 585
Physical Exam
Physical Exam
AAOx3, MAEE 5/5
Soft distant heart sounds, S1 S2 soft 1/6 systolic murmur
CTA bilat, non labored
soft abd, + bs
right groin site without ht/bleeding, soft, non tender, no bruit
bilat extremities w/palpable distal pulses, no edema
[2025-05-05] MEDS: TIKOSYN 250 MCG PO (08:43)
[2025-05-05 08:51] LABS: Hematocrit 23.8 % (39.0-52.0); Hemoglobin 7.7 g/dL (13.0-18.0); Mean Corp Hgb Conc. 32.4 g/dL (33.0-37.0); Mean Corpuscular Volume 93.0 fL (80.0-94.0); Platelet Count 103 10^3/uL (130-400); Red Cell Dist. Width 14.9 % (11.5-14.5)
--- NOTE | 2025-05-05 09:37 | PTCARENOTE ---
Patient resting in bed, right groin dressing intact with old drainage present, area is soft with a palpable right pedal pulse. Patient denies any complaints, awaiting echo, losartan and lasix held this AM as ordered.
[2025-05-05] MEDS: SPIRIVA RESPIMAT 2.5 MCG 2 PUFF INH (09:49)
[2025-05-05] MEDS: STRIVERDI RESPIMAT 2 PUFF INH (09:50)
--- NOTE | 2025-05-05 13:09 | W.DS.TRANS ---
DC Summary - Abstract Writer
-
Discharge Instructions:
Discharge Diagnosis/Procedures AFib, s/p ablation and Watchman device implant
Diet Low Cholesterol
Driving Restrictions No driving for 24 hours
Others Tests Follow up [facility] with Dr. Perry on 08/10/2025 at
[facility]. You will
receive a call the day before with arrival time.
Instructions:
Stand-Alone Forms: DC Instructions- Cath/EP Lab
Changes to Home Medications: No
Discharge Medications:
DC Medications w/original date entered in [facility]
dofetilide 250 mcg capsule (Tikosyn) 250 mcg PO BID 12/03/20
furosemide 40 mg tablet (Lasix) 40 mg PO DAILY 12/03/20
rivaroxaban 20 mg tablet (Xarelto) 20 mg PO QPM 12/03/20
losartan 25 mg tablet 25 mg PO DAILY 04/17/25
metoprolol succinate 25 mg tablet,extended release 24 hr 12.5 mg PO QPM 04/17/25
tiotropium 2.5 mcg-olodaterol 2.5 mcg/actuation mist for inhalation (Stiolto Respimat) 2 puff inhalation DAILY 04/17/25
cyanocobalamin (vitamin B-12) 1,000 mcg tablet 1,000 mcg PO DAILY 04/22/25
albuterol sulfate 2.5 mg/0.5 mL solution for nebulization 5 mg inhalation Q6H PRN sob 05/01/25
Home Medication Changes
Pending Results: No
--- NOTE | 2025-05-05 14:05 | PTCARENOTE ---
Patient is cleared for discharge home. Right groin dressing was changed, slight amount of serosanguineous drainage present on dressing, area is soft and nontender. Reviewed discharge instructions, he is aware to monitor his BP daily and if his SBP >
100, he may resume his lasix and losartan on Sunday. Aware of follow up appointments scheduled. Patient discharged home with his .
--- NOTE | 2025-05-05 14:13 | PN.CDI ---
CDI
- -
CDI:
Physician Documentation Request
Admit Date: 05/04/25 05:57
Dear Manasa Vilchis
Patient is s/p watchman device implant and left atrial appendage exclusion.
Hematology results:
Laboratory Tests
05/05/25 05/05/25
02:56 08:34
WBC 4.0 L 4.2 L
RBC 2.53 L 2.56 L
Plt Count 108 L 103 L
Could you please provide a diagnosis that supports the above lab abnormalities and additional evaluation/ monitoring:
pancytopenia
abnormal lab values clinically insignificant
Other
Use of terms such as suspected, likely, concern for, or probable (associated with a specific diagnosis that is being evaluated, monitored, or treated as if it exists) are acceptable and can be coded in the inpatient setting, when documented at the
time of discharge.
Thank you,
Diane Pablo RN, BSN
CDI Specialist
tiger text
Please use your independent medical judgment in providing your response.
--- NOTE | 2025-05-05 14:56 | W.PN.UPDATE ---
Update Note
Progress Note Update
Repeat CBC with stable anemia/pancytopenia.
Groin site stable.
He is scheduled for iv iron infusions on Friday 05/11 at [facility] per Hematology.
BP improved with ambulation, and walking without dizziness.
Followup echo with nml LVSF, EF60-65%, no WMA, bi-atrial moderate enlargement, mild MR, trivial pericardial effusion.
Pt will hold losartan and lasix for the next 3 days and follow BP at home. OK to restart in 3 days if SBP>100.
Followup with Dr. Quinones as well as UMESH in 3 months.
Home today.
== END 2025-05-05 14:00 | disposition home or self-care (01) | DRG 317 ==
LOC: IVU 05:57
PROVIDERS: Internal Medicine Interventional Cardiology; Nuclear Medicine Nuclear Cardiology; Nurse Practitioner; ADMITTING PHYSICIAN Internal Medicine Cardiovascular Disease; FAMILY PHYSICIAN Family Medicine
PROC: 4A023FZ Measurement of Cardiac Rhythm, Percutaneous Approach (ICD-10-PCS; 2025-05-04)
PROC: 02583ZF Destruction of Conduction Mechanism using Irreversible Electroporation, Percutaneous Approach (ICD-10-PCS; 2025-05-04)
PROC: B24BZZ4 Ultrasonography of Heart with Aorta, Transesophageal (ICD-10-PCS; 2025-05-04)
PROC: 02K83ZZ Map Conduction Mechanism, Percutaneous Approach (ICD-10-PCS; 2025-05-04)
PROC: 02L73DK Occlusion of Left Atrial Appendage with Intraluminal Device, Percutaneous Approach (ICD-10-PCS; 2025-05-04)
PROC: 4A0234Z Measurement of Cardiac Electrical Activity, Percutaneous Approach (ICD-10-PCS; 2025-05-04)
DX: I48.0 Paroxysmal atrial fibrillation (principal); Z00.6 Encounter for examination for normal comparison and control in clinical research program; D61.818 Other pancytopenia; E87.1 Hypo-osmolality and hyponatremia; I13.0 Hypertensive heart and chronic kidney disease with heart failure and stage 1 through stage 4 chronic kidney disease, or unspecified chronic kidney disease; I50.32 Chronic diastolic (congestive) heart failure; Z68.41 Body mass index [BMI] 40.0-44.9, adult; R04.0 Epistaxis; D63.1 Anemia in chronic kidney disease; N18.31 Chronic kidney disease, stage 3a; R00.1 Bradycardia, unspecified; I87.2 Venous insufficiency (chronic) (peripheral); I27.20 Pulmonary hypertension, unspecified; I35.0 Nonrheumatic aortic (valve) stenosis; J44.9 Chronic obstructive pulmonary disease, unspecified; G47.33 Obstructive sleep apnea (adult) (pediatric); H40.9 Unspecified glaucoma; M10.9 Gout, unspecified; E66.01 Morbid (severe) obesity due to excess calories; R26.2 Difficulty in walking, not elsewhere classified; Z87.891 Personal history of nicotine dependence; Z79.01 Long term (current) use of anticoagulants
CPT/HCPCS: 33340; 36415; 80048; 80053; 83735; 85025; 85027; 85347; 85610; 86850; 86900; 86901; 87070; 93005; 93308; 93355; 93656; 93657; 94640; 99406; C1766; C1769; C1894; Q9967